=== PATIENT | male | born 1980 | race Caucasian/White ===

== ENCOUNTER 2019-07-12 15:47 | Emergency (ER) | payer BC, OTHER | END 2019-07-12 16:20 | disposition home or self-care (01) | LOC: MADERS 15:47 | DX: E03.9 Hypothyroidism, unspecified (principal); H66.93 Otitis media, unspecified, bilateral; F17.210 Nicotine dependence, cigarettes, uncomplicated; I10 Essential (primary) hypertension; E78.5 Hyperlipidemia, unspecified; Z79.899 Other long term (current) drug therapy; Z76.0 Encounter for issue of repeat prescription | CPT/HCPCS: 99282 ==